=== PATIENT | male | born 1985 | race Caucasian/White ===

== ENCOUNTER 2024-04-08 16:28 | Emergency (ER) | payer BC | END 2024-04-08 18:08 | disposition home or self-care (01) | LOC: JD.ED 16:28 → EDBD 16:28 → JD.ED 18:08 | DX: S93.401A Sprain of unspecified ligament of right ankle, initial encounter (principal); W21.02XA Struck by soccer ball, initial encounter | CPT/HCPCS: 73610-26-RT; 73610-RT; 73630-26-LT; 73630-LT; 99283 ==